=== PATIENT | female | born 1985 | race Caucasian/White ===

== ENCOUNTER 2017-05-13 00:10 | Emergency (ER) | payer SELFPAY ==
[2017-05-13 01:33] VITALS: BMI 20.3
--- NOTE | 2017-05-13 01:41 | PDOC ---
History of Present Illness - General History Source: Patient Exam Limitations: No Limitations - History of Present Illness Initial Comments: 05/13/17 02:12 The patient is a 32 year old female with significant past medical history heroin abuse, endocarditis, and open heart surgery who presents to the ED brought in by aunt for heroin abuse. Patient is a poor historian and history is given by aunt. Aunt reports patient has a long h/o of heroin abuse and states patient has been doing heroin for most of yesterday. She states the patient has not gone for treatment for quite some time. As per aunt, patient complains of diffuse pain. No reported fever, chills, sob, chest pain, abdominal pain, nausea , vomiting, diarrhea, or urinary complaints. Aunt denies h/o of hypertension or diabetes. Aunt states that patient had hetal in the right knee due to a wound that the patient obtained 2 weeks ago Allergies: NKDA Social History: Current smoker (ppd), heroin abuse Past Surgical History: open heart surgery PCP: None reported <Sheri Rm - Last Filed: 05/13/17 02:57> - General History Source: Patient, Family (aunt) <Oscar Harvey - Last Filed: 05/13/17 19:28> - General Chief Complaint: Pain Stated Complaint: PAIN Time Seen by Provider: 05/13/17 01:33 Past History <Sheri Rm - Last Filed: 05/13/17 02:57> - Psycho/Social/Smoking Cessation Hx Suicidal Ideation: No Smoking History: Current every day smoker Have you smoked in the past 12 months: No Number of Cigarettes Smoked Daily: 20 Information on smoking cessation initiated: No Drug/Substance Use Hx: Yes (heroin) <Oscar Harvey - Last Filed: 05/13/17 19:28> - Past Medical History Allergies/Adverse Reactions: Allergies Allergy/AdvReac Type Severity Reaction Status Date / Time No Known Allergies Allergy Verified 05/13/17 13:54 Home Medications: Ambulatory Orders NK [No Known Home Medication] 05/13/17 Review of Systems - Review of Systems Able to Perform ROS?: Yes Comments:: 05/13/17 02:12 CONSTITUTIONAL: Absent: fever, no chills, no fatigue EYES: Absent: visual changes ENT: Absent: ear pain, no sore throat CARDIOVASCULAR: Absent: chest pain, no palpitations RESPIRATORY: Absent: cough, no SOB GI: Absent: abdominal pain, no nausea, no vomiting, no constipation, no diarrhea GENITOURINARY: Absent: dysuria, no frequency, no hematuria MUSCULOSKELETAL: +diffuse pain Absent: back pain SKIN: Absent: rash NEURO: Absent: headache <Sheri Rm - Last Filed: 05/13/17 02:57> *Physical Exam - Vital Signs Last Vital Signs Temp Pulse Resp BP Pulse Ox 98.0 F 93 H 14 104/68 100 05/13/17 01:09 05/13/17 01:09 05/13/17 01:09 05/13/17 01:09 05/13/17 01:09 - Physical Exam Comments: 05/13/17 02:12 GENERAL: Malnourished, appears thin. No apparent distress. HEENT: Normocephalic, atraumatic. PERRL, EOM intact. Dry mucous membranes. CARDIOVASCULAR: Normal S1, S2. Regular rate and rhythm. PULMONARY: Clear to auscultation bilaterally. ABDOMEN: Soft, non-distended, non-tender. EXTREMITIES: Normal ROM in all four extremities. No gross deformities. Well healed wound with hetal in place, no erythema, nontender, nonfluctuant of the surround area. SKIN: Warm, dry. No rash NEUROLOGICAL: Somnolent, but answers questions appropriately. Easily arousable. No focal neurological deficits. <Sheri Rm - Last Filed: 05/13/17 02:57> - Vital Signs Last Vital Signs Temp Pulse Resp BP Pulse Ox 98.0 F 93 H 14 104/68 100 05/13/17 01:09 05/13/17 01:09 05/13/17 01:09 05/13/17 01:09 05/13/17 01:09 <Oscar Harvey - Last Filed: 05/13/17 19:28> Heart Score/ECG Review - ECG Impressions Comment:: 05/13/17 02:57 NSR @94bpm Possible L atrial enlargement Borderline ECG <Sheri Rm - Last Filed: 05/13/17 02:57> ED Treatment Course - LABORATORY CBC & Chemistry Diagram: 05/13/17 02:35 05/13/17 02:35 <Sheri Rm - Last Filed: 05/13/17 02:57> - LABORATORY CBC & Chemistry Diagram: 05/13/17 02:35 05/13/17 02:35 <Oscar Harvey - Last Filed: 05/13/17 19:28> Medical Decision Making - Medical Decision Making 05/13/17 05:41 Dr. Harvey: The scribe's documentation has been prepared under my direction and personally reviewed by me in its entirery. I confirm that the note above accurately reflects all work, treatment, procedures, and medical decision making performed by me. Spoke to FERNY Arellano at [facility]. there will be a bed available for her if pt is medical cleared. <Oscar Harvey - Last Filed: 05/13/17 19:28> *DC/Admit/Observation/Transfer - Attestations Scribe Attestion: 05/13/17 02:12 Documentation prepared by Sheri Rm, acting as caregivers non medical for Oscar Harvey MD/DO. <Sheri Rm - Last Filed: 05/13/17 02:57> - Discharge Dispostion Admit: No <Oscar Harvey - Last Filed: 05/13/17 19:28> Diagnosis at time of Disposition: Polysubstance abuse - Discharge Dispostion Disposition: HOME Condition at time of disposition: Stable - Referrals Referrals: Franklin Van MD [Staff Physician] - - Patient Instructions Printed Discharge Instructions: DI for Drug Abuse and Drug Addiction Additional Instructions: As discussed, we have made arrangements for you to be evaluated at [facility] for detox. Proceed directly there for further management. Blood tests showed no acute abnormalities, but there is a mild anemia which should be further evaluated by your primary physician.
[2017-05-13] MEDS ORDERED: SODIUM CHLORIDE 1,000 ML IV STA (01:42)
[2017-05-13] MEDS ORDERED: morphine CARPU-JECT 2 MG/1 ML DISP.SYRIN IM ONE (01:42)
[2017-05-13 02:48] LABS: BASOPHIL 0.9 % (0-2.0); EOSINOPHIL 3.5 % (0-4.5); MCH 22.2 pg (25.7-33.7); MCHC 31.1 g/dl (32.0-36.0); MEAN CELL VOLUME 71.2 fl (80-96); MEAN PLT VOLUME 7.3 fl (7.5-11.1); PLATELET COUNT 338 K/MM3 (134-434); RDW 22.7 % (11.6-15.6); WHITE BLOOD COUNT 5.9 K/mm3 (4.0-10.0)
[2017-05-13 03:01] LABS: INR 1.07 (0.82-1.09); PROTHROMBIN TIME (PATIENT) 11.8 SEC (9.98-11.88)
[2017-05-13 03:10] LABS: ALBUMIN 2.7 g/dl (3.4-5.0); ALK PHOS 89 U/L (45-117); ANION GAP 8 (8-16); BILIRUBIN,TOTAL 0.1 mg/dL (0.2-1.0); CALCIUM 8.5 mg/dL (8.5-10.1); CO2 30 mmol/L (21-32); CREATININE 0.9 mg/dL (0.55-1.02); GLUCOSE,RANDOM 163 mg/dL (74-106); SGOT/AST 16 U/L (15-37); SGPT/ALT 14 U/L (12-78); TOT PROT 7.6 g/dl (6.4-8.2)
[2017-05-13] MEDS ORDERED: POTASSIUM CHLORIDE TABS 20 MEQ TABLET.ER (FP) PO ONE ×2 (05:03→05:07)
[2017-05-13] MEDS ORDERED: morphine CARPU-JECT 4 MG/1 ML DISP.SYRIN ONE (05:07)
[2017-05-13] MEDS ORDERED: morphine CARPU-JECT 2 MG/1 ML DISP.SYRIN ONE (05:07)
[2017-05-13 05:38] LABS: URINE APPEARANCE SLCLOUDY; URINE BILIRUBIN NEGATIVE (NEGATIVE); URINE COLOR LTYELLOW; URINE GLUCOSE (UA) NEGATIVE (NEGATIVE); URINE KETONE NEGATIVE (NEGATIVE); URINE NITRITE NEGATIVE (NEGATIVE); URINE PROTEIN NEGATIVE (NEGATIVE); URINE UROBILINOGEN NEGATIVE E.U./dl (0.2-1.0)
[2017-05-13 05:51] LABS: URINE MARIJUANA THC NEGATIVE ng/ml (CUTOFF=50)
[2017-05-13 05:58] LABS: URINE BLOOD 1+ (NEGATIVE); URINE LEUK ESTERASE TRACE (NEGATIVE)
[2017-05-13 07:38] LABS: ANISOCYTOSIS 3+; MICROCYTOSIS 3+
[2017-05-13 08:46] VITALS: TEMP 98.3
--- NOTE | 2017-05-13 09:27 | PDOC ---
*Physical Exam - Vital Signs Last Vital Signs Temp Pulse Resp BP Pulse Ox 98.3 F 89 18 108/74 100 05/13/17 08:45 05/13/17 08:45 05/13/17 08:45 05/13/17 08:45 05/13/17 08:45 ED Treatment Course - LABORATORY CBC & Chemistry Diagram: 05/13/17 02:35 05/13/17 02:35 - ADDITIONAL ORDERS Additional order review: Laboratory Results 05/13/17 05/13/17 05/13/17 05:20 02:35 02:35 INR Sodium 141 Potassium 3.2 L Chloride 103 Carbon Dioxide 30 Anion Gap 8 BUN 11 Creatinine 0.9 Creat Clearance w eGFR > 60 Random Glucose 163 H Calcium 8.5 Total Bilirubin 0.1 L AST 16 ALT 14 Alkaline Phosphatase 89 Total Protein 7.6 Albumin 2.7 L Serum , Qual Urine Color Urine Appearance Urine pH Urine Protein Urine Glucose (UA) Urine Ketones Urine Blood Urine Nitrite Urine Bilirubin Urine Urobilinogen Ur Leukocyte Esterase Opiates Screen Positive Methadone Screen Positive Barbiturate Screen Negative Phencyclidine Screen Negative Ur Amphetamines Screen Negative MDMA (Ecstasy) Screen Negative Benzodiazepines Screen Negative Cocaine Screen Positive U Marijuana (THC) Screen Negative Blood Type A POSITIVE Antibody Screen Negative 05/13/17 05/13/17 02:35 02:35 INR 1.07 Sodium Potassium Chloride Carbon Dioxide Anion Gap BUN Creatinine Creat Clearance w eGFR Random Glucose Calcium Total Bilirubin AST ALT Alkaline Phosphatase Total Protein Albumin Serum , Qual Negative Urine Color Ltyellow Urine Appearance Slcloudy Urine pH 6.0 Urine Protein Negative Urine Glucose (UA) Negative Urine Ketones Negative Urine Blood 1+ H Urine Nitrite Negative Urine Bilirubin Negative Urine Urobilinogen Negative Ur Leukocyte Esterase Trace H Opiates Screen Methadone Screen Barbiturate Screen Phencyclidine Screen Ur Amphetamines Screen MDMA (Ecstasy) Screen Benzodiazepines Screen Cocaine Screen U Marijuana (THC) Screen Blood Type Antibody Screen 05/13/17 02:35 RBC 3.90 MCV 71.2 L MCHC 31.1 L RDW 22.7 H MPV 7.3 L Neutrophils % 63.0 Lymphocytes % 25.5 Monocytes % 7.1 Eosinophils % 3.5 Basophils % 0.9 - Medications Given in the ED: ED Medications Discontinued Medications Generic Name Dose Route Start Last Admin Trade Name Freq PRN Reason Stop Dose Admin Sodium Chloride 1,000 mls @ 1,000 mls/hr 05/13/17 01:42 05/13/17 05:20 Normal Saline - IV 05/13/17 02:41 Not Given ASDIR STA Morphine Sulfate 6 mg 05/13/17 01:42 05/13/17 05:19 Morphine Injection - IM 05/13/17 01:43 6 mg ONCE ONE Administration Potassium Chloride 40 meq 05/13/17 05:03 05/13/17 05:19 K-Dur - PO 05/13/17 05:04 40 meq ONCE ONE Administration Medical Decision Making - Medical Decision Making 05/13/17 09:22 Received signout on this 32-year-old female with history of polysubstance abuse who is medically cleared for detox at [facility]. Baseline anemia, received IV fluids and pain medication overnight, potassium repletion. Discussions were had with both the patient and her aunt, and pt had been accepted to [facility] during the overnight shift. Plan at signout was to dispo to [facility] after 8am. Pt ate breakfast, feels well, still agrees with plan for detox at [facility]. Discussed again with aunt, who called, who is also in agreement and will meet the patient at [facility]. D/C to [facility]. *DC/Admit/Observation/Transfer Diagnosis at time of Disposition: Polysubstance abuse - Discharge Dispostion Disposition: HOME - Referrals Referrals: Franklin Van MD [Staff Physician] - - Patient Instructions Additional Instructions: As discussed, we have made arrangements for you to be evaluated at [facility] for detox. Proceed directly there for further management. Blood tests showed no acute abnormalities, but there is a mild anemia which should be further evaluated by your primary physician.
[2017-05-13 10:22] VITALS: BP 107/67; PULSE 74
--- NOTE | 2017-05-13 10:49 | EKG ---
Test Reason : Blood Pressure : / mmHG Vent. Rate : 094 BPM Atrial Rate : 094 BPM P-R Int : 154 ms QRS Dur : 086 ms QT Int : 378 ms P-R-T Axes : 054 075 011 degrees QTc Int : 472 ms NORMAL SINUS RHYTHM POSSIBLE LEFT ATRIAL ENLARGEMENT BORDERLINE ECG NO PREVIOUS ECGS AVAILABLE Confirmed by DAVID VALENCIA, PAMELLA ([id number]) on 05/13/2017 10:48:38 AM Referred By: Confirmed By:PAMELLA HERNANDEZ MD
== END 2017-05-13 10:21 | disposition home or self-care (01) ==
LOC: JER 00:10
PROC: 3E023NZ Introduction of Analgesics, Hypnotics, Sedatives into Muscle, Percutaneous Approach (ICD-10-PCS; principal; 2017-05-13)
PROC: 3E0337Z Introduction of Electrolytic and Water Balance Substance into Peripheral Vein, Percutaneous Approach (ICD-10-PCS; 2017-05-13)
DX: F19.10 Other psychoactive substance abuse, uncomplicated (principal); I38 Endocarditis, valve unspecified; F17.210 Nicotine dependence, cigarettes, uncomplicated
CPT/HCPCS: 36415; 71010-TC; 80053; 80307; 81003; 81015; 84703; 85025; 85610; 86850; 86900; 86901; 87040; 87086; 93005; 93010; 99285-25

== ENCOUNTER 2017-05-13 11:27 | Inpatient (IN) | payer OTHER ==
[2017-05-13 13:30] VITALS: BMI 18.8
--- NOTE | 2017-05-13 14:13 | HP ---
COWS - Scale Resting Pulse: 2= [place] 101-120 Sweatin=Flushed/Facial Moisture Restless Observation: 1= Difficult to Sit Still Pupil Size: 0= Normal to Room Light Bone or Joint Aches: 2= Severe Diffuse Aches Runny Nose/ Eye Tearin= Runny Nose/Eyes GI Upset > 30mins: 2= Nausea/Diarrhea Tremor Observation: 2= Slight Tremor Visible Yawning Observation: 2= >3x During Session Anxiety or Irritability: 2=Irritable/Anxious Goose Flesh Skin: 3=Piloerection COWS Score: 20 Admission ROS [facility] Chief Complaint: pt is a 32yr old female with a history of heroin and crack/cocaine dependence seeking detox for treatment. This is her first time in our detox. last time in detox was "years ago in [place], [place]." Allergies/Adverse Reactions: Allergies Allergy/AdvReac Type Severity Reaction Status Date / Time No Known Allergies Allergy Verified 05/13/17 13:54 History of Present Illness: pt is a 32yr old female with a history of heroin dependence seeking detox for treatment. This is her first time in our detox. last detox was in [place] years ago. pt also has a h/o endocarditis a year ago. pt also has multiple skin grafting to both legs lower extremities d/t abscess and currently the wound is beefy red no s/s infection. pt was seen at [facility] [place] [facility] followed by ID team but pt was d/c two weeks ago and never followed up. Will address wound care during detox. Exam Limitations: Physical Impairment (unsteady gain d/t wounds to legs) - Ebola screening Have you traveled outside of the country in the last 21 days: No Have you had contact with anyone from an Ebola affected area: No Have you been sick,other than usual withdrawal symptoms: No - Review of Systems Constitutional: Chills, Diaphoresis, Loss of Appetite, Night Sweats, Changes in sleep EENT: reports: No Symptoms Reported Respiratory: reports: No Symptoms reported Cardiac: reports: No Symptoms Reported GI: reports: Diarrhea, Nausea, Poor Appetite, Poor Fluid Intake : reports: No Symptoms Reported Musculoskeletal: reports: Back Pain, Joint Pain, Muscle Pain Integumentary: reports: Flushing, Sweating, Other (open wounds to both legs lower extremities) Neuro: reports: Tingling, Tremors Endocrine: reports: Excessive Sweating, Flushing, Intolerance to Cold, Intolerance to Heat Hematology: reports: Anemia Psychiatric: reports: Judgement Intact, Mood/Affect Appropiate, Orientated x3, Agitated, Anxious Other Systems: Reviewed and Negative Patient History - Patient Medical History Hx Anemia: Yes (borderline anemia) Hx Asthma: No Hx Chronic Obstructive Pulmonary Disease (COPD): No Hx Cancer: No Hx Cardiac Disorders: No Hx Congestive Heart Failure: No Hx Hypertension: No Hx Hypercholesterolemia: No Hx Pacemaker: No HX Cerebrovascular Accident: No Hx Seizures: No Hx Dementia: No Hx Diabetes: No Hx Gastrointestinal Disorders: No Hx Liver Disease: No Hx Genitourinary Disorders: No Hx Sexually Transmitted Disorders: No Hx Renal Disease (ESRD): No Hx Thyroid Disease: No Hx Human Immunodeficiency Virus (HIV): No Hx Hepatitis C: No Hx Depression: No Hx Suicide Attempt: No Hx Bipolar Disorder: No Hx Schizophrenia: No - Patient Surgical History Past Surgical History: Yes Hx Cardiac Surgery: Yes (open heart surgery for endocarditis a yr ago) Other Surgical History: right knee skin infection drainage done 2 weeks ago. hetal removed 05/12 - PPD History Previous Implant?: Yes Documented Results: Negative w/o proof PPD to be Administered?: Yes - Reproductive History Patient is a Female of Child Bearing Age (11 -55 yrs old): Yes Patient : No - Smoking Cessation Smoking history: Current every day smoker Have you smoked in the past 12 months: No Aproximately how many cigarettes per day: 20 Hx Chewing Tobacco Use: No Initiated information on smoking cessation: Yes 'Breaking Loose' booklet given: 05/13/17 - Substance & Tx. History Hx Alcohol Use: No Hx Substance Use: Yes Substance Use Type: Heroin - Substances Abused Heroin Route: Injection Frequency: Daily Amount used: 10 bags Age of first use: 21 Date of Last Use: 05/12/17 Family Disease History - Family Disease History Family Disease History: Other: Mother ( heroin OD) Admission Physical Exam BHS - Vital Signs Vital Signs: Vital Signs - 24 hr 05/13/17 13:27 Temperature 97.0 F L Pulse Rate 110 H Respiratory 18 Rate Blood Pressure 107/72 - Physical General Appearance: Yes: Disheveled, Moderate Distress, Thin, Tremorous, Irritable, Sweating, Anxious HEENTM: Yes: Normal Voice, Nasal Congestion Respiratory: Yes: Lungs Clear, Normal Breath Sounds, No Respiratory Distress Neck: Yes: No masses,lesions,Nodules Breast: Yes: Within Normal Limits Cardiology: Yes: Regular Rhythm, Regular Rate, S1, S2, Tachycardia Abdominal: Yes: Normal Bowel Sounds, Non Tender, Soft Genitourinary: Yes: Within Normal Limits Back: Yes: Normal Inspection Musculoskeletal: Yes: full range of Motion Extremities: Yes: Normal Capillary Refill, Normal Inspection, Tremors Neurological: Yes: Fully Oriented, Alert, Normal Response Integumentary: Yes: Track Brown, Other (open wound to both lower legs) Lymphatic: Yes: Within Normal Limits - Diagnostic (1) Opioid dependence with withdrawal Current Visit: Yes Status: Chronic (2) Wound of left lower extremity Current Visit: Yes Status: Chronic Qualifiers: Encounter type: initial encounter Qualified Code(s): S81.802A - Unspecified open wound, left lower leg, initial encounter (3) Wound of right lower extremity Current Visit: Yes Status: Chronic Qualifiers: Encounter type: initial encounter Qualified Code(s): S81.801A - Unspecified open wound, right lower leg, initial encounter (4) H/O endocarditis Current Visit: No Status: Chronic (5) Nicotine dependence Current Visit: Yes Status: Chronic Qualifiers: Nicotine product type: cigarettes Substance use status: uncomplicated Qualified Code(s): F17.210 - Nicotine dependence, cigarettes, uncomplicated (6) H/O methicillin resistant Staphylococcus aureus Current Visit: No Status: Chronic (7) Weight loss Current Visit: Yes Status: Chronic Cleared for Admission [facility] - Detox or Rehab [facility] Level of Care: Medically Managed Detox Regimen/Protocol: Methadone [facility] Breath Alcohol Content Breath Alcohol Content: 0 Urine Pregancy Test - Result Urine Test Results: Negative- NO Line Present Urine Drug Screen - Results Drug Screen Negative: No Urine Drug Screen Results: VALARIE-Cocaine, OPI-Opiates
[2017-05-13] MEDS ORDERED: MAG HYDROX/AL HYDROX/SIMETH 30 ML UNIT-DOSE CUP PO PRN (14:53)
[2017-05-13] MEDS ORDERED: LOPERAMIDE HCL 2 MG CAPSULE PO PRN (14:53)
[2017-05-13] MEDS ORDERED: MAGNESIUM HYDROX 2400MG/30ML ORAL SUSPENSION 30 ML CUP PO PRN (14:53)
[2017-05-13] MEDS ORDERED: NICOTINE POLACRILEX 4 MG GUM BC PRN (14:53)
[2017-05-13] MEDS ORDERED: diphenhydrAMINE HCL 50 MG CAPSULE PO PRN (14:53)
[2017-05-13] MEDS ORDERED: guaiFENesin/D-METHORPHAN HB 10 ML UNIT-DOSE CUPS PO PRN (14:53)
[2017-05-13] MEDS ORDERED: MAGNESIUM CITRATE 300 ML BOTTLE PO PRN (14:53)
[2017-05-13] MEDS ORDERED: MENTHOL/PHENOL 1 EACH UD MM PRN (14:53)
[2017-05-13] MEDS ORDERED: P-EPHED 60MG/TRIPROLIDI 2.5MG TABLET PO PRN (14:53)
[2017-05-13] MEDS ORDERED: cloNIDine HCL 0.1 MG TABLET PO ONE (15:41)
[2017-05-13] MEDS ORDERED: METHADONE HCL 10 MG TABLET (FOR DETOX USE ONLY) PO ONE ×2 (15:42→23:00)
[2017-05-13 17:15] LABS: URINE APPEARANCE CLOUDY; URINE BILIRUBIN NEGATIVE (NEGATIVE); URINE BLOOD NEGATIVE (NEGATIVE); URINE COLOR LTYELLOW; URINE GLUCOSE (UA) NEGATIVE (NEGATIVE); URINE KETONE NEGATIVE (NEGATIVE); URINE NITRITE NEGATIVE (NEGATIVE); URINE PROTEIN NEGATIVE (NEGATIVE); URINE UROBILINOGEN NEGATIVE E.U./dl (0.2-1.0)
[2017-05-13 17:19] LABS: URINE LEUK ESTERASE TRACE (NEGATIVE)
[2017-05-13 17:35] LABS: URINE BACTERIA RARE /hpf (NONE SEEN); URINE MUCUS RARE; URINE RBC 1 /hpf (0-3); URINE WBC 3 /hpf (3-5)
[2017-05-13] MEDS: THIAMINE HCL 100 MG TABLET (FP) PO SCH (22:05)
[2017-05-13] MEDS: NAPROXEN 500 MG TABLET (FP) PO SCH (22:06)
[2017-05-13] MEDS: diazePAM 5 MG TABLET PO PRN (22:06)
[2017-05-13] MEDS: RANITIDINE HCL 150 MG TABLET (FP) PO SCH (22:06)
[2017-05-14] MEDS: diazePAM 5 MG TABLET PO PRN ×2 (05:51→11:21)
[2017-05-14] MEDS ORDERED: METHADONE HCL 10 MG TABLET (FOR DETOX USE ONLY) PO ONE (10:00)
[2017-05-14] MEDS ORDERED: SILVER SULFADIAZINE 1% TOP CREAM 400 GM JAR TP SCH (10:00)
[2017-05-14 10:07] LABS: MCH 21.9 pg (25.7-33.7); MCHC 30.4 g/dl (32.0-36.0); MEAN CELL VOLUME 72.2 fl (80-96); MEAN PLT VOLUME 7.6 fl (7.5-11.1); PLATELET COUNT 315 K/MM3 (134-434); RDW 22.9 % (11.6-15.6); WHITE BLOOD COUNT 5.3 K/mm3 (4.0-10.0)
[2017-05-14] MEDS: RANITIDINE HCL 150 MG TABLET (FP) PO SCH ×2 (10:33→22:19)
[2017-05-14] MEDS: PRENATAL VITAMINS W/ FOLIC ACID TABLET (FP) PO SCH (10:33)
[2017-05-14] MEDS: cloNIDine HCL 0.1 MG TABLET PO SCH ×2 (10:33→22:19)
[2017-05-14] MEDS: NAPROXEN 500 MG TABLET (FP) PO SCH ×2 (10:33→22:19)
[2017-05-14] MEDS: NICOTINE 21 MG/24 HOURS TOPICAL PATCH TD SCH (10:33)
[2017-05-14] MEDS: POTASSIUM CHLORIDE TABS 20 MEQ TABLET.ER (FP) PO SCH (10:33)
[2017-05-14] MEDS: SILVER SULFADIAZINE 1% TOP CREAM 50 GM JAR TP SCH (10:34)
[2017-05-14 10:45] LABS: ALBUMIN 2.7 g/dl (3.4-5.0); ALK PHOS 85 U/L (45-117); ANION GAP 4 (8-16); BILIRUBIN,TOTAL 0.3 mg/dL (0.2-1.0); CALCIUM 8.8 mg/dL (8.5-10.1); CO2 32 mmol/L (21-32); CREATININE 0.8 mg/dL (0.55-1.02); GLUCOSE,RANDOM 77 mg/dL (74-106); SGOT/AST 13 U/L (15-37); SGPT/ALT 14 U/L (12-78); TOT PROT 7.2 g/dl (6.4-8.2)
--- NOTE | 2017-05-14 10:45 | PN ---
BHS COWS - Scale Resting Pulse: 4= DE > 121 Sweatin=Flushed/Facial Moisture Restless Observation: 1= Difficult to Sit Still Pupil Size: 0= Normal to Room Light Bone or Joint Aches: 2= Severe Diffuse Aches Runny Nose/ Eye Tearin= Runny Nose/Eyes GI Upset > 30mins: 0= None Tremor Observation of Outstretched Hands: 2= Slight Tremor Visible Yawning Observation: 1= 1-2x During Session Anxiety or Irritability: 2=Irritable/Anxious Goose Flesh Skin: 3=Piloerection COWS Score: 19 S Progress Note (SOAP) Subjective: chills sweats body aches interrupted sleep nausea shakes irritable Objective: 05/14/17 10:43 Vital Signs Temperature 98.1 F 05/14/17 09:57 Pulse Rate 123 H 05/14/17 09:57 Respiratory Rate 20 05/14/17 09:57 Blood Pressure 128/81 05/14/17 09:57 O2 Sat by Pulse Oximetry (%) Laboratory Tests 05/13/17 05/14/17 15:00 07:00 WBC 5.3 RBC 4.23 Hgb 9.3 L Hct 30.5 L MCV 72.2 L MCHC 30.4 L RDW 22.9 H Plt Count 315 MPV 7.6 Urine Color Ltyellow Urine Appearance Cloudy Urine pH 8.0 D Ur Specific [place] 1.015 Urine Protein Negative Urine Glucose (UA) Negative Urine Ketones Negative Urine Blood Negative Urine Nitrite Negative Urine Bilirubin Negative Urine Urobilinogen Negative Ur Leukocyte Esterase Trace H Urine RBC 1 Urine WBC 3 Ur Epithelial Cells Many Amorphous Phosphates Moderate Urine Bacteria Rare Urine Mucus Rare labs pending low H:H;replenish with iron supplement awake/alert ambulating no acute distress Assessment: 05/14/17 10:44 withdrawal sx Plan: continue detox increase fluids clonidine 0.1mg bid flexiril 10mg prn naproxen bid zantac bid
[2017-05-14] MEDS: FERROUS SO4 325 MG TABLET (FP) PO SCH ×2 (11:17→22:19)
--- NOTE | 2017-05-14 12:30 | EKG ---
Test Reason : Blood Pressure : / mmHG Vent. Rate : 107 BPM Atrial Rate : 107 BPM P-R Int : 138 ms QRS Dur : 078 ms QT Int : 332 ms P-R-T Axes : 052 065 032 degrees QTc Int : 443 ms SINUS TACHYCARDIA POSSIBLE LEFT ATRIAL ENLARGEMENT BORDERLINE ECG WHEN COMPARED WITH ECG OF 13-MAY-2017 02:21, NO SIGNIFICANT CHANGE WAS FOUND Confirmed by FRANK SHAIKH MD ([id number]) on 05/14/2017 12:30:37 PM Referred By: Confirmed By:FRANK SHAIKH MD
[2017-05-14] MEDS: THIAMINE HCL 100 MG TABLET (FP) PO SCH (22:19)
[2017-05-15] MEDS: diazePAM 5 MG TABLET PO PRN ×3 (08:46→22:35)
[2017-05-15] MEDS ORDERED: METHADONE HCL 5 MG TABLET (FOR DETOX USE ONLY) PO ONE (10:00)
[2017-05-15] MEDS: PRENATAL VITAMINS W/ FOLIC ACID TABLET (FP) PO SCH (10:33)
[2017-05-15] MEDS: POTASSIUM CHLORIDE TABS 20 MEQ TABLET.ER (FP) PO SCH (10:33)
[2017-05-15] MEDS: FERROUS SO4 325 MG TABLET (FP) PO SCH ×2 (10:33→22:35)
[2017-05-15] MEDS: RANITIDINE HCL 150 MG TABLET (FP) PO SCH ×2 (10:33→22:35)
[2017-05-15] MEDS: cloNIDine HCL 0.1 MG TABLET PO SCH ×2 (10:33→22:35)
[2017-05-15] MEDS: NICOTINE 21 MG/24 HOURS TOPICAL PATCH TD SCH (10:33)
[2017-05-15] MEDS: NAPROXEN 500 MG TABLET (FP) PO SCH ×2 (10:33→22:37)
[2017-05-15] MEDS: SILVER SULFADIAZINE 1% TOP CREAM 50 GM JAR TP SCH (12:10)
--- NOTE | 2017-05-15 12:30 | PN ---
BHS COWS - Scale Resting Pulse: 2= [place] 101-120 Sweatin=Flushed/Facial Moisture Restless Observation: 1= Difficult to Sit Still Pupil Size: 0= Normal to Room Light Bone or Joint Aches: 2= Severe Diffuse Aches Runny Nose/ Eye Tearin= None GI Upset > 30mins: 1= Stomach Cramp Tremor Observation of Outstretched Hands: 2= Slight Tremor Visible Yawning Observation: 1= 1-2x During Session Anxiety or Irritability: 2=Irritable/Anxious Goose Flesh Skin: 0=Smooth Skin COWS Score: 13 BHS Progress Note (SOAP) Subjective: shakes sweats interrupted sleep body aches i need a cane Objective: 05/15/17 12:30 Vital Signs Temperature 98.2 F 05/15/17 09:53 Pulse Rate 108 H 05/15/17 09:53 Respiratory Rate 18 05/15/17 09:53 Blood Pressure 110/79 05/15/17 09:53 O2 Sat by Pulse Oximetry (%) Laboratory Tests 05/13/17 05/14/17 05/14/17 15:00 07:00 07:00 WBC 5.3 RBC 4.23 Hgb 9.3 L Hct 30.5 L MCV 72.2 L MCHC 30.4 L RDW 22.9 H Plt Count 315 MPV 7.6 Sodium 142 Potassium 4.2 D Chloride 106 Carbon Dioxide 32 Anion Gap 4 L BUN 12 Creatinine 0.8 Creat Clearance w eGFR > 60 Random Glucose 77 D Calcium 8.8 Total Bilirubin 0.3 D AST 13 L ALT 14 Alkaline Phosphatase 85 Total Protein 7.2 Albumin 2.7 L Urine Color Ltyellow Urine Appearance Cloudy Urine pH 8.0 D Ur Specific [place] 1.015 Urine Protein Negative Urine Glucose (UA) Negative Urine Ketones Negative Urine Blood Negative Urine Nitrite Negative Urine Bilirubin Negative Urine Urobilinogen Negative Ur Leukocyte Esterase Trace H Urine RBC 1 Urine WBC 3 Ur Epithelial Cells Many Amorphous Phosphates Moderate Urine Bacteria Rare Urine Mucus Rare RPR Titer 05/14/17 07:00 WBC RBC Hgb Hct MCV MCHC RDW Plt Count MPV Sodium Potassium Chloride Carbon Dioxide Anion Gap BUN Creatinine Creat Clearance w eGFR Random Glucose Calcium Total Bilirubin AST ALT Alkaline Phosphatase Total Protein Albumin Urine Color Urine Appearance Urine pH Ur Specific [place] Urine Protein Urine Glucose (UA) Urine Ketones Urine Blood Urine Nitrite Urine Bilirubin Urine Urobilinogen Ur Leukocyte Esterase Urine RBC Urine WBC Ur Epithelial Cells Amorphous Phosphates Urine Bacteria Urine Mucus RPR Titer Nonreactive awake/alert ambulating no acute distress Assessment: 05/15/17 12:32 withdrawal sx Plan: continue detox increase fluids will order cane to assist with ambulating
[2017-05-15] MEDS: THIAMINE HCL 100 MG TABLET (FP) PO SCH (22:34)
[2017-05-16] MEDS ORDERED: METHADONE HCL 5 MG TABLET (FOR DETOX USE ONLY) PO ONE (10:00)
[2017-05-16] MEDS: FERROUS SO4 325 MG TABLET (FP) PO SCH ×2 (10:41→22:07)
[2017-05-16] MEDS: POTASSIUM CHLORIDE TABS 20 MEQ TABLET.ER (FP) PO SCH (10:42)
[2017-05-16] MEDS: cloNIDine HCL 0.1 MG TABLET PO SCH ×2 (10:42→22:07)
[2017-05-16] MEDS: RANITIDINE HCL 150 MG TABLET (FP) PO SCH ×2 (10:42→22:07)
[2017-05-16] MEDS: SILVER SULFADIAZINE 1% TOP CREAM 50 GM JAR TP SCH (10:43)
[2017-05-16] MEDS: NICOTINE 21 MG/24 HOURS TOPICAL PATCH TD SCH (10:43)
[2017-05-16] MEDS: PRENATAL VITAMINS W/ FOLIC ACID TABLET (FP) PO SCH (10:43)
[2017-05-16] MEDS: NAPROXEN 500 MG TABLET (FP) PO SCH ×2 (10:43→22:07)
[2017-05-16] MEDS: hydrOXYzine PAMOATE 50 MG CAPSULE (FP) PO PRN ×2 (15:00→22:06)
[2017-05-16] MEDS: THIAMINE HCL 100 MG TABLET (FP) PO SCH (22:06)
[2017-05-17] MEDS ORDERED: METHADONE HCL 10 MG TABLET (FOR DETOX USE ONLY) PO ONE (10:00)
[2017-05-17] MEDS: cloNIDine HCL 0.1 MG TABLET PO SCH ×2 (10:35→22:32)
[2017-05-17] MEDS: FERROUS SO4 325 MG TABLET (FP) PO SCH ×2 (10:35→22:33)
[2017-05-17] MEDS: POTASSIUM CHLORIDE TABS 20 MEQ TABLET.ER (FP) PO SCH (10:35)
[2017-05-17] MEDS: PRENATAL VITAMINS W/ FOLIC ACID TABLET (FP) PO SCH (10:35)
[2017-05-17] MEDS: RANITIDINE HCL 150 MG TABLET (FP) PO SCH ×2 (10:35→22:33)
[2017-05-17] MEDS: SILVER SULFADIAZINE 1% TOP CREAM 50 GM JAR TP SCH (10:36)
[2017-05-17] MEDS: NICOTINE 21 MG/24 HOURS TOPICAL PATCH TD SCH (10:36)
[2017-05-17] MEDS: NAPROXEN 500 MG TABLET (FP) PO SCH ×2 (10:37→22:33)
[2017-05-17] MEDS: ACETAMINOPHEN 325 MG TABLET (FP) PO PRN (12:31)
--- NOTE | 2017-05-17 14:25 | PN ---
BHS Progress Note (SOAP) Subjective: Sweating,interrupted sleep,restless Objective: 05/17/17 14:24 Vital Signs - 8 hr 05/17/17 05/17/17 06:25 10:00 Temperature 97.3 F L 98.1 F Pulse Rate 78 124 H Respiratory 16 20 Rate Blood Pressure 105/60 137/73 Laboratory Tests 05/13/17 05/14/17 05/14/17 15:00 07:00 07:00 WBC 5.3 RBC 4.23 Hgb 9.3 L Hct 30.5 L MCV 72.2 L MCHC 30.4 L RDW 22.9 H Plt Count 315 MPV 7.6 Sodium 142 Potassium 4.2 D Chloride 106 Carbon Dioxide 32 Anion Gap 4 L BUN 12 Creatinine 0.8 Creat Clearance w eGFR > 60 Random Glucose 77 D Calcium 8.8 Total Bilirubin 0.3 D AST 13 L ALT 14 Alkaline Phosphatase 85 Total Protein 7.2 Albumin 2.7 L Urine Color Ltyellow Urine Appearance Cloudy Urine pH 8.0 D Ur Specific [place] 1.015 Urine Protein Negative Urine Glucose (UA) Negative Urine Ketones Negative Urine Blood Negative Urine Nitrite Negative Urine Bilirubin Negative Urine Urobilinogen Negative Ur Leukocyte Esterase Trace H Urine RBC 1 Urine WBC 3 Ur Epithelial Cells Many Amorphous Phosphates Moderate Urine Bacteria Rare Urine Mucus Rare RPR Titer 05/14/17 07:00 WBC RBC Hgb Hct MCV MCHC RDW Plt Count MPV Sodium Potassium Chloride Carbon Dioxide Anion Gap BUN Creatinine Creat Clearance w eGFR Random Glucose Calcium Total Bilirubin AST ALT Alkaline Phosphatase Total Protein Albumin Urine Color Urine Appearance Urine pH Ur Specific [place] Urine Protein Urine Glucose (UA) Urine Ketones Urine Blood Urine Nitrite Urine Bilirubin Urine Urobilinogen Ur Leukocyte Esterase Urine RBC Urine WBC Ur Epithelial Cells Amorphous Phosphates Urine Bacteria Urine Mucus RPR Titer Nonreactive labs noted Assessment: 05/17/17 14:25 Withdrawal sx. Plan: Continue detox
[2017-05-17] MEDS: THIAMINE HCL 100 MG TABLET (FP) PO SCH (22:33)
[2017-05-18] MEDS ORDERED: METHADONE HCL 5 MG TABLET (FOR DETOX USE ONLY) PO ONE (06:00)
[2017-05-18] MEDS: RANITIDINE HCL 150 MG TABLET (FP) PO SCH ×2 (10:21→22:22)
[2017-05-18] MEDS: cloNIDine HCL 0.1 MG TABLET PO SCH ×2 (10:21→22:22)
[2017-05-18] MEDS: FERROUS SO4 325 MG TABLET (FP) PO SCH ×2 (10:21→22:22)
[2017-05-18] MEDS: NAPROXEN 500 MG TABLET (FP) PO SCH ×2 (10:21→22:23)
[2017-05-18] MEDS: POTASSIUM CHLORIDE TABS 20 MEQ TABLET.ER (FP) PO SCH (10:21)
[2017-05-18] MEDS: PRENATAL VITAMINS W/ FOLIC ACID TABLET (FP) PO SCH (10:21)
[2017-05-18] MEDS: NICOTINE 21 MG/24 HOURS TOPICAL PATCH TD SCH (10:21)
[2017-05-18] MEDS: hydrOXYzine PAMOATE 50 MG CAPSULE (FP) PO PRN (10:23)
--- NOTE | 2017-05-18 13:47 | PN ---
[facility] Progress Note (SOAP) Subjective: Sweating,interrupted sleep,restless. Objective: 05/18/17 13:46 Vital Signs - 8 hr 05/18/17 05/18/17 06:47 10:00 Temperature 97.3 F L 96.4 F L Pulse Rate 68 71 Respiratory 18 16 Rate Blood Pressure 109/68 121/76 Laboratory Last Values WBC 5.3 K/mm3 (4.0-10.0) 05/14/17 07:00 RBC 4.23 M/mm3 (3.60-5.2) 05/14/17 07:00 Hgb 9.3 GM/dL (10.7-15.3) L 05/14/17 07:00 Hct 30.5 % (32.4-45.2) L 05/14/17 07:00 MCV 72.2 fl (80-96) L 05/14/17 07:00 MCHC 30.4 g/dl (32.0-36.0) L 05/14/17 07:00 RDW 22.9 % (11.6-15.6) H 05/14/17 07:00 Plt Count 315 K/MM3 (134-434) 05/14/17 07:00 MPV 7.6 fl (7.5-11.1) 05/14/17 07:00 Sodium 142 mmol/L (136-145) 05/14/17 07:00 Potassium 4.2 mmol/L (3.5-5.1) D 05/14/17 07:00 Chloride 106 mmol/L (98-107) 05/14/17 07:00 Carbon Dioxide 32 mmol/L (21-32) 05/14/17 07:00 Anion Gap 4 (8-16) L 05/14/17 07:00 BUN 12 mg/dL (7-18) 05/14/17 07:00 Creatinine 0.8 mg/dL (0.55-1.02) 05/14/17 07:00 Creat Clearance w eGFR > 60 (>60) 05/14/17 07:00 Random Glucose 77 mg/dL (74-106) D 05/14/17 07:00 Calcium 8.8 mg/dL (8.5-10.1) 05/14/17 07:00 Total Bilirubin 0.3 mg/dL (0.2-1.0) D 05/14/17 07:00 AST 13 U/L (15-37) L 05/14/17 07:00 ALT 14 U/L (12-78) 05/14/17 07:00 Alkaline Phosphatase 85 U/L (45-117) 05/14/17 07:00 Total Protein 7.2 g/dl (6.4-8.2) 05/14/17 07:00 Albumin 2.7 g/dl (3.4-5.0) L 05/14/17 07:00 Urine Color Ltyellow 05/13/17 15:00 Urine Appearance Cloudy 05/13/17 15:00 Urine pH 8.0 (5.0-8.0) D 05/13/17 15:00 Ur Specific [place] 1.015 (1.005-1.025) 05/13/17 15:00 Urine Protein Negative (NEGATIVE) 05/13/17 15:00 Urine Glucose (UA) Negative (NEGATIVE) 05/13/17 15:00 Urine Ketones Negative (NEGATIVE) 05/13/17 15:00 Urine Blood Negative (NEGATIVE) 05/13/17 15:00 Urine Nitrite Negative (NEGATIVE) 05/13/17 15:00 Urine Bilirubin Negative (NEGATIVE) 05/13/17 15:00 Urine Urobilinogen Negative E.U./dl (0.2-1.0) 05/13/17 15:00 Ur Leukocyte Esterase Trace (NEGATIVE) H 05/13/17 15:00 Urine RBC 1 /hpf (0-3) 05/13/17 15:00 Urine WBC 3 /hpf (3-5) 05/13/17 15:00 Ur Epithelial Cells Many /hpf (FEW) 05/13/17 15:00 Amorphous Phosphates Moderate /hpf (NONE SEEN) 05/13/17 15:00 Urine Bacteria Rare /hpf (NONE SEEN) 05/13/17 15:00 Urine Mucus Rare 05/13/17 15:00 RPR Titer Nonreactive (NONREACTIVE) 05/14/17 07:00 labs noted Assessment: 05/18/17 13:46 Withdrawal sx. Plan: Continue detox
[2017-05-18] MEDS: ACETAMINOPHEN 325 MG TABLET (FP) PO PRN (15:11)
[2017-05-18] MEDS: SILVER SULFADIAZINE 1% TOP CREAM 50 GM JAR TP SCH (15:35)
[2017-05-18] MEDS: THIAMINE HCL 100 MG TABLET (FP) PO SCH (22:22)
[2017-05-19 07:08] VITALS: BP 112/65; PULSE 74; TEMP 98.2
--- NOTE | 2017-05-19 09:13 | DS ---
[facility] Detox Discharge Summary Admission Date: 05/13/17 - History Present History: Opioid Dependence - Physical Exam Results Vital Signs: Vital Signs Temperature 98.2 F 05/19/17 06:00 Pulse Rate 74 05/19/17 06:00 Respiratory Rate 16 05/19/17 06:00 Blood Pressure 112/65 05/19/17 06:00 O2 Sat by Pulse Oximetry (%) - Treatment Hospital Course: Detox Protocol Followed, Detoxed Safely, Responded well, Discharged Condition Good - Medication Discharge Medications: Ambulatory Orders NK [No Known Home Medication] 05/13/17 - AMA Did Patient Leave Against Medical Advice: No
[2017-05-19] MEDS: hydrOXYzine PAMOATE 50 MG CAPSULE (FP) PO PRN (09:38)
[2017-05-19] MEDS: PRENATAL VITAMINS W/ FOLIC ACID TABLET (FP) PO SCH (09:38)
[2017-05-19] MEDS: cloNIDine HCL 0.1 MG TABLET PO SCH (09:39)
[2017-05-19] MEDS: POTASSIUM CHLORIDE TABS 20 MEQ TABLET.ER (FP) PO SCH (09:39)
[2017-05-19] MEDS: FERROUS SO4 325 MG TABLET (FP) PO SCH (09:39)
[2017-05-19] MEDS: RANITIDINE HCL 150 MG TABLET (FP) PO SCH (09:39)
[2017-05-19] MEDS: NAPROXEN 500 MG TABLET (FP) PO SCH (09:39)
[2017-05-19] MEDS: SILVER SULFADIAZINE 1% TOP CREAM 50 GM JAR TP SCH (09:41)
[2017-05-19] MEDS: NICOTINE 21 MG/24 HOURS TOPICAL PATCH TD SCH (10:06)
== END 2017-05-19 09:50 | disposition home or self-care (01) | DRG 773 ==
LOC: YASAS 11:27 → Y6N 15:31
PROVIDERS: ADMIT Internal Medicine; ATTEND Internal Medicine
PROC: HZ2ZZZZ Detoxification Services for Substance Abuse Treatment (ICD-10-PCS; principal; 2017-05-13)
DX: F11.23 Opioid dependence with withdrawal (principal); F17.210 Nicotine dependence, cigarettes, uncomplicated; D64.9 Anemia, unspecified; R00.0 Tachycardia, unspecified; S81.802A Unspecified open wound, left lower leg, initial encounter; S81.801A Unspecified open wound, right lower leg, initial encounter; Z86.79 Personal history of other diseases of the circulatory system; Z86.14 Personal history of Methicillin resistant Staphylococcus aureus infection; Z87.898 Personal history of other specified conditions; X58.XXXA Exposure to other specified factors, initial encounter; Y93.9 Activity, unspecified; Y92.9 Unspecified place or not applicable
CPT/HCPCS: 36415; 80053; 81003; 81015; 85027; 86593; 93005; 93010

== ENCOUNTER 2017-05-19 10:57 | Inpatient (IN) | payer OTHER ==
[2017-05-19] MEDS ORDERED: LOPERAMIDE HCL 2 MG CAPSULE PO PRN (13:21)
[2017-05-19] MEDS ORDERED: MAG HYDROX/AL HYDROX/SIMETH 30 ML UNIT-DOSE CUP PO PRN (13:21)
[2017-05-19] MEDS ORDERED: MAGNESIUM CITRATE 300 ML BOTTLE PO PRN (13:21)
[2017-05-19] MEDS ORDERED: P-EPHED 60MG/TRIPROLIDI 2.5MG TABLET PO PRN (13:21)
[2017-05-19] MEDS ORDERED: diphenhydrAMINE HCL 50 MG CAPSULE PO PRN (13:21)
[2017-05-19] MEDS ORDERED: MAGNESIUM HYDROX 2400MG/30ML ORAL SUSPENSION 30 ML CUP PO PRN (13:21)
[2017-05-19] MEDS ORDERED: NICOTINE POLACRILEX 4 MG GUM BUC PRN (13:21)
[2017-05-19] MEDS ORDERED: ACETAMINOPHEN 325 MG TABLET (FP) PO PRN (13:21)
[2017-05-19] MEDS ORDERED: guaiFENesin/D-METHORPHAN HB 10 ML UNIT-DOSE CUPS PO PRN (13:21)
[2017-05-19] MEDS ORDERED: IBUPROFEN 400 MG TABLET (FP) PO PRN (13:21)
[2017-05-19] MEDS ORDERED: MENTHOL/PHENOL 1 EACH UD MM PRN (13:21)
--- NOTE | 2017-05-19 13:21 | HP ---
[facility] Rehab Assess/Revision - Admission History Admitted to Rehab from: [facility] (PT COMPLETED DETOX TODAY ON .) Date of Admission to Rehab: 05/19/17 - Vital signs Vital Signs: Vital Signs Period Temp Pulse Resp BP Sys/[place] Pulse Ox Last 24 Hr 97 F 130 20 102/67 - Findings Detox History & Physical reviewed: Yes Concur with findings: Yes Comments/Additional Findings: ALERT O X 3. NAD. CONTINUE PREVIOUS WOUND DRESSINGS ON BOTH LOWER EXTREMITIES..
[2017-05-19] MEDS ORDERED: CYCLOBENZAPRINE HCL 10 MG TABLET (FP) PO PRN (13:30)
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
[2017-05-19 17:51] LABS: URINE APPEARANCE CLOUDY; URINE BILIRUBIN NEGATIVE (NEGATIVE); URINE BLOOD NEGATIVE (NEGATIVE); URINE COLOR LTYELLOW; URINE GLUCOSE (UA) NEGATIVE (NEGATIVE); URINE KETONE NEGATIVE (NEGATIVE); URINE NITRITE NEGATIVE (NEGATIVE); URINE PROTEIN NEGATIVE (NEGATIVE); URINE UROBILINOGEN NEGATIVE E.U./dl (0.2-1.0)
[2017-05-19] MEDS: hydrOXYzine PAMOATE 25 MG CAPSULE (FP) PO PRN (17:54)
[2017-05-19] MEDS: NICOTINE 21 MG/24 HOURS TOPICAL PATCH TD SCH (17:56)
[2017-05-19] MEDS: RANITIDINE HCL 150 MG TABLET (FP) PO SCH ×2 (17:56→22:30)
[2017-05-19 17:58] LABS: URINE LEUK ESTERASE 1+ (NEGATIVE)
[2017-05-19] MEDS: SILVER SULFADIAZINE 1% TOP CREAM 50 GM JAR TP SCH (17:58)
[2017-05-19 18:10] LABS: URINE BACTERIA RARE /hpf (NONE SEEN); URINE RBC 1 /hpf (0-3); URINE WBC 5 /hpf (3-5)
[2017-05-19] MEDS: FERROUS SO4 325 MG TABLET (FP) PO SCH (21:27)
[2017-05-19] MEDS ORDERED: THIAMINE HCL 100 MG TABLET (FP) PO SCH (22:00)
[2017-05-19] MEDS ORDERED: QUEtiapine FUMARATE 100 MG TABLET (FP) PO SCH (22:00)
[2017-05-20 06:41] VITALS: BP 112/77; PULSE 99; TEMP 97.5
[2017-05-20] MEDS: hydrOXYzine PAMOATE 25 MG CAPSULE (FP) PO PRN (08:45)
[2017-05-20] MEDS: RANITIDINE HCL 150 MG TABLET (FP) PO SCH (09:17)
[2017-05-20] MEDS: FERROUS SO4 325 MG TABLET (FP) PO SCH (09:17)
[2017-05-20] MEDS: NICOTINE 21 MG/24 HOURS TOPICAL PATCH TD SCH (09:17)
[2017-05-20] MEDS: SILVER SULFADIAZINE 1% TOP CREAM 50 GM JAR TP SCH (09:18)
[2017-05-20] MEDS ORDERED: PRENATAL VITAMINS W/ FOLIC ACID TABLET (FP) PO SCH (10:00)
--- NOTE | 2017-06-02 15:52 | PN ---
S Progress Note Note: Patient left this program AMA on 05/20/17.See staff notes for details.
== END 2017-05-20 10:49 | disposition left against medical advice (07) | DRG 770 ==
LOC: YASAS 10:57 → Y3E 14:10
PROVIDERS: ADMIT Psychiatry & Neurology Psychiatry; ATTEND Psychiatry & Neurology Psychiatry
PROC: HZ42ZZZ Group Counseling for Substance Abuse Treatment, Cognitive-Behavioral (ICD-10-PCS; principal; 2017-05-19)
DX: F11.20 Opioid dependence, uncomplicated (principal); F14.20 Cocaine dependence, uncomplicated; F17.210 Nicotine dependence, cigarettes, uncomplicated; F19.24 Other psychoactive substance dependence with psychoactive substance-induced mood disorder; S81.802D Unspecified open wound, left lower leg, subsequent encounter; S81.801D Unspecified open wound, right lower leg, subsequent encounter; X58.XXXD Exposure to other specified factors, subsequent encounter; Z86.14 Personal history of Methicillin resistant Staphylococcus aureus infection; Z86.79 Personal history of other diseases of the circulatory system
CPT/HCPCS: 81003; 81015